=== PATIENT | female | born 1955 | race Caucasian/White ===

== ENCOUNTER → 2018-07-20 | Outpatient (CLI) | payer OTHER, SELFPAY ==
[2018-03-22 11:16] VITALS: BMI 32.3
--- NOTE | 2018-07-20 16:26 | BI_ITS ---
MAMMOGRAPHY - BILATERAL SCREENING REASON FOR EXAM: Female, 63 years old. Routine annual screening examination. PERTINENT HISTORY: Mother with breast cancer. History of prior right lumpectomy with radiation treatment. TECHNIQUE: Digital bilateral breast jessika (3D mammographic acquisition) in the CC and MLO projections. 2-D mediolateral oblique (MLO) and craniocaudad (CC) views of both breasts were obtained. CAD: Full Field Digital Mammography with Computer Added Detection was performed. COMPARISON: Comparison is made with prior outside examination dated April 17, 2017. FINDINGS: Breast Composition: The breasts are heterogeneously dense, which may obscure small masses. There are no dominant masses or suspicious calcifications. Stable focal area of architectural distortion in the upper lateral aspect of the right breast incomplete with prior lumpectomy. A surgical clip is seen in the right axillary region. Stable small bilateral axillary lymph nodes. No other significant abnormalities are identified. There has been no significant change since the prior study. BI/SCREEN MAMM (CAD) W/JESSIKA BILAT IMPRESSION: Stable bilateral screening mammogram. Yearly follow-up mammogram recommended. (A) ASSESSMENT CATEGORY: BIRADS Category 2: Benign. A letter regarding these results will be sent to the patient by the facility within 30 days. Approximately 10% of breast cancers are not detected by mammography. A normal mammogram should not delay biopsy of a clinically suspicious abnormality. [id number] Electronically Signed: John Short, at 11:26 EDT , Service support ,
== END | disposition home or self-care (01) ==
PROVIDERS: Family Provider Internal Medicine; PCP Internal Medicine; Visit Provider Obstetrics & Gynecology
DX: Z12.31 Encounter for screening mammogram for malignant neoplasm of breast (principal)
CPT/HCPCS: 77063; 77067

== ENCOUNTER → 2018-08-07 | Outpatient (CLI) | payer OTHER, SELFPAY ==
[2018-07-28 18:08] VITALS: BMI 19.3
[2018-08-07 09:41] LABS: Absolute Lymphocyte Count 2.81 X10^3/ul (0.83-4.51); Absolute Neutrophil Count 2.8 X10^3/uL (2.0-7.7); Basophil# 0.02 X10^3/uL; Basophil% 0.3 % (0-1); Eosinophil# 0.22 X10^3/uL; Eosinophils% 3.5 % (0-5); Hematocrit 41.6 % (37-47); Hemoglobin 13.6 g/dl (12.0-15.0); Lymphocyte # 2.81 X10^3/ul (4.0); Lymphocyte % 45.1 % (19-41); Mean Corp Hgb Conc 32.7 g/gl (32-36); Mean Corpuscular Hgb 29.4 pg (27.0-32.0); Mean Corpuscular Volume 89.8 fL (81-99); Mean Platelet Vol. 9.8 fl (6.2-12.0); Monocyte# 0.37 X10^3/uL; Monocyte% 5.9 % (0-10); Neutrophil # 2.79 X10^3/uL (2.7-7.7); Neutrophil % 44.9 % (47-70); Platelet Count 251 K/mm3 (150-450); RBC Distribution Width CV 13.8 % (11.6-14.6); RBC Distribution Width SD 45.2 fl (35.1-43.9); Red Blood Count 4.63 M/mm3 (4.2-5.4); White Blood Count 6.2 K/mm3 (4.4-11.0)
[2018-08-07 09:42] LABS: POSITIVE COUNT NO; POSITIVE DIFFERENTIAL NO; POSITIVE MORPHOLOGY NO
[2018-08-07 09:49] LABS: Anion Gap 6 (5-15); BUN 15 mg/dL (7-18); BUN/Creat Ratio 20.4 RATIO (10-20); Calcium,Total 9.1 mg/dL (8.5-10.1); Chloride 111 mmol/L (98-107); Cholesterol 188 mg/dL (200); Creatinine, Serum 0.73 mg/dL (0.55-1.02); EST Glomerular Filtration Rate 86 mL/min (>60); Est Glom Filt Rate - Afr Amer 103 mL/min (>60); Glucose 83 mg/dL (74-106); High Density Lipoprotein 60 mg/dL; Potassium 3.9 mmol/L (3.5-5.1); Sodium Level 143 mmol/L (136-145); Triglycerides 188 mg/dL; Very Low Density Lipoprotein 38 mg/dL (5-40)
== END | disposition home or self-care (01) ==
LOC: LAB 09:04
PROVIDERS: Family Provider Internal Medicine; PCP Internal Medicine; Referring Provider Internal Medicine; Visit Provider Internal Medicine
DX: Z00.00 Encounter for general adult medical examination without abnormal findings (principal)
CPT/HCPCS: 36415; 80048; 80061; 85025

== ENCOUNTER → 2019-06-07 16:15 | Outpatient (CLI) | payer OTHER, SELFPAY ==
[2018-07-28 18:08] VITALS: BMI 19.3
[2019-06-07 15:44] VITALS: BMI 19.3
--- NOTE | 2019-06-07 16:16 | BI_ITS ---
MAMMOGRAPHY - BILATERAL SCREENING REASON FOR EXAM: Female, 64 years old. Routine annual screening examination. PERTINENT HISTORY: Sister had right breast lumpectomy and radiation therapy for cancer TECHNIQUE: Digital bilateral breast jessika (3D mammographic acquisition) in the CC and MLO projections. 2-D mediolateral oblique (MLO) and craniocaudad (CC) views of both breasts were obtained. CAD: Full Field Digital Mammography with Computer Added Detection was performed. COMPARISON: None. FINDINGS: Breast Composition: Dense intraluminal structure is identified There are no dominant masses or suspicious calcifications. No other significant abnormalities are identified. BI/SCREEN MAMM (CAD) W/JESSIKA BILAT IMPRESSION: Stable bilateral screening mammogram. Yearly follow-up mammogram recommended. (A) ASSESSMENT CATEGORY: BIRADS Category 1: Negative. A letter regarding these results will be sent to the patient by the facility within 30 days. Approximately 10% of breast cancers are not detected by mammography. A normal mammogram should not delay biopsy of a clinically suspicious abnormality. [id number] Electronically Signed: Sukhjinder Laboy, at 10:28 EST Tel , Service support ,
[2019-06-10 05:45] LABS: HPV APTIMA, High Risk Negative (Negative)
== END ==
PROVIDERS: PCP Internal Medicine; Referring Provider Obstetrics & Gynecology; Visit Provider Obstetrics & Gynecology
DX: N87.1 Moderate cervical dysplasia (principal); Z12.31 Encounter for screening mammogram for malignant neoplasm of breast
CPT/HCPCS: 77063; 77067; 87624; 88175; G0145

== ENCOUNTER → 2020-03-16 10:22 | Outpatient (CLI) | payer OTHER, SELFPAY ==
[2020-03-16 10:04] VITALS: BMI 30.5
[2020-03-16 12:59] LABS: Absolute Lymphocyte Count 2.67 X10^3/uL (0.83-4.51); Absolute Neutrophil Count 2.5 X10^3/uL (2.0-7.7); Basophil# 0.02 X10^3/uL; Basophil% 0.3 % (0-1); Eosinophil# 0.16 X10^3/uL; Eosinophils% 2.8 % (0-5); Hematocrit 45.6 % (37-47); Hemoglobin 14.3 g/dL (12.0-15.0); Lymphocyte # 2.67 X10^3/ul (4.0); Mean Corp Hgb Conc 31.4 g/dL (32-36); Mean Corpuscular Hgb 29.1 pg (27.0-32.0); Mean Corpuscular Volume 92.7 fL (81-99); Mean Platelet Vol. 9.9 fl (6.2-12.0); Monocyte% 6.9 % (0-10); NRBC Flagged by Analyzer 0 % (0-5); Neutrophil # 2.54 X10^3/uL (2.7-7.7); Neutrophil % 43.8 % (47-70); Platelet Count 287 K/mm3 (150-450); RBC Distribution Width CV 13.6 % (11.6-14.6); RBC Distribution Width SD 46.7 fl (35.1-43.9); Red Blood Count 4.92 M/mm3 (4.2-5.4); White Blood Count 5.8 K/mm3 (4.4-11.0)
[2020-03-16 13:18] LABS: ALB/GLOB Ratio 1.3 RATIO (0.9-2.4); AST(SGOT) 19 U/L (15-37); Alanine Aminotransfer ALT/SGPT 29 U/L (13-56); Albumin, Serum 4.1 g/dL (3.2-5.0); Alkaline Phosphatase 109 U/L (45-117); Anion Gap 5 (5-15); BUN 14 mg/dL (7-18); BUN/Creat Ratio 16.4 RATIO (10-20); Calcium,Total 9.6 mg/dL (8.5-10.1); Chloride 111 mmol/L (98-107); Cholesterol 202 mg/dL (200); Creatinine, Serum 0.85 mg/dL (0.55-1.02); EST Glomerular Filtration Rate 72 mL/min (>60); Est Glom Filt Rate - Afr Amer 87 mL/min (>60); Globulin 3.1 g/dL (2.2-4.2); Glucose 83 mg/dL (74-106); High Density Lipoprotein 69 mg/dL; Potassium 4.4 mmol/L (3.5-5.1); Protein, Total 7.2 g/dL (6.4-8.2); Sodium Level 144 mmol/L (136-145); T4 Free Direct 0.96 ng/dL (0.76-1.46); Thyroid Stim Hormone (TSH) 1.95 uIU/mL (0.358-3.74); Triglycerides 117 mg/dL; Very Low Density Lipoprotein 23 mg/dL (5-40)
== END ==
PROVIDERS: PCP Internal Medicine; Referring Provider Internal Medicine; Visit Provider Internal Medicine
DX: Z00.00 Encounter for general adult medical examination without abnormal findings (principal); R00.1 Bradycardia, unspecified
CPT/HCPCS: 36415; 80053; 80061; 84439; 84443; 85025

== ENCOUNTER → 2020-03-16 12:52 | Outpatient (CLI) | payer OTHER, SELFPAY ==
[2020-03-16 10:04] VITALS: BMI 30.5
--- NOTE | 2020-03-16 12:55 | EKG12_ITS ---
Test Reason : Blood Pressure : / mmHG Vent. Rate : 049 BPM Atrial Rate : 049 BPM P-R Int : 166 ms QRS Dur : 080 ms QT Int : 426 ms P-R-T Axes : 050 -07 052 degrees QTc Int : 384 ms Sinus bradycardia Otherwise normal ECG Confirmed by ZAIRE STONE, SALINAS ([id number]), material expeditor JONY VIRGEN ([id number]) on 03/19/2020 1:43:02 PM Referred By: Moi Clemens Confirmed By:SALINAS TAI MD
== END ==
PROVIDERS: PCP Internal Medicine; Referring Provider Internal Medicine; Visit Provider Internal Medicine
DX: R00.1 Bradycardia, unspecified (principal)
CPT/HCPCS: 93005

== ENCOUNTER → 2020-06-18 15:46 | Outpatient (CLI) | payer OTHER, SELFPAY ==
[2019-06-07 15:44] VITALS: BMI 19.3
[2020-06-18 15:00] VITALS: BMI 27.6
--- NOTE | 2020-06-18 15:50 | BI_ITS ---
MAMMOGRAPHY - BILATERAL SCREENING REASON FOR EXAM: Female, 65 years old. Routine annual screening examination. PERTINENT HISTORY: P/H OF BREAST CA AGE 51 TUBULAR SISTER AGE 53 HAD BREAST CA PT TOOK TOMOXIFEN X 10 YRS RT LUMPECTOMY 2008 WITH RAD TX AND TOMOXIFEN X 10 YRS 2020- DR PIMENTEL MENTIONED TO PT RT NIPPLE SEEMS A LITTLE THICKER TECHNIQUE: Digital bilateral breast jessika (3D mammographic acquisition) in the CC and MLO projections. 2-D mediolateral oblique (MLO) and craniocaudad (CC) views of both breasts were obtained. CAD: Full Field Digital Mammography with Computer Added Detection was performed. COMPARISON: 06/07/2019 and 07/20/2018 FINDINGS: Breast Composition: The breasts are extremely dense, which lowers the sensitivity of mammography. There are no dominant masses or suspicious calcifications. No other significant abnormalities are identified. BI/SCRN MAMM (CAD)W/JESSIKA BILAT IMPRESSION: Stable bilateral screening mammogram. Yearly follow-up mammogram recommended. (A) ASSESSMENT CATEGORY: BIRADS Category 2: Benign. A letter regarding these results will be sent to the patient by the facility within 30 days. Approximately 10% of breast cancers are not detected by mammography. A normal mammogram should not delay biopsy of a clinically suspicious abnormality. [id number] Electronically Signed: Lorne Licea MD at 15:56 EST Tel , Service support ,
== END ==
PROVIDERS: PCP Internal Medicine; Referring Provider Obstetrics & Gynecology; Visit Provider Obstetrics & Gynecology
DX: Z12.31 Encounter for screening mammogram for malignant neoplasm of breast (principal)
CPT/HCPCS: 77063; 77067

== ENCOUNTER 2021-06-21 14:36 | Outpatient (CLI) | payer OTHER, SELFPAY ==
--- NOTE | 2021-06-21 14:36 | BI_ITS ---
MAMMOGRAPHY - BILATERAL SCREENING 3-D TOMOSYNTHESIS REASON FOR EXAM: Female, 66 years old. breast cancer screening PERTINENT HISTORY: No significant family history. TECHNIQUE: 2-D mammograms and 3-D Tomosynthesis of the breast (s) were performed. CAD was performed. COMPARISON: 06/18/2020 FINDINGS: The breast composition is heterogeneously dense that can obscure small breast masses. Scattered benign calcifications are seen. No dense spiculated masses or suspicious microcalcifications are identified. No architectural distortion is identified. There is no skin thickening or retraction. There has been no significant change since the prior study. BI/SCRN MAMM (CAD)W/JESSIKA BILAT IMPRESSION: No mammographic signs of malignancy. Routine yearly mammograms recommended. ASSESSMENT CATEGORY: BIRADS Category 1: Negative. A letter regarding these results will be sent to the patient by the facility within 30 days. FOLLOW UP RECOMMENDATION: Yearly follow up mammogram recommended. (A) Approximately 10% of breast cancers are not detected by mammography. A normal mammogram should not delay biopsy of a clinically suspicious abnormality. Electronically Signed: Samuel Evans MD at 11:47 EDT ,
== END 2021-06-21 23:59 | disposition home or self-care (01) ==
LOC: OPBI 14:36
PROVIDERS: PCP Internal Medicine; Referring Provider Obstetrics & Gynecology; Visit Provider Obstetrics & Gynecology
DX: Z12.31 Encounter for screening mammogram for malignant neoplasm of breast (principal)
CPT/HCPCS: 77063; 77067

== ENCOUNTER → 2022-06-19 | Outpatient (CLI) | payer MEDICARE, SELFPAY ==
--- NOTE | 2022-06-19 16:26 | BI_ITS ---
MAMMOGRAPHY - BILATERAL SCREENING REASON FOR EXAM: Female, 67 years old. Routine annual screening examination. PERTINENT HISTORY: Personal history of breast cancer. Prior right lumpectomy and radiation treatment. Sister with breast cancer. TECHNIQUE: Digital bilateral breast jessika (3D mammographic acquisition) in the CC and MLO projections. 2-D mediolateral oblique (MLO) and craniocaudad (CC) views of both breasts were obtained. CAD: Full Field Digital Mammography with Computer Added Detection was performed. COMPARISON: Comparison is made with prior study June 21, 2021 and June 18, 2020. FINDINGS: Breast Composition: The breasts are extremely dense, which lowers the sensitivity of mammography. There are no dominant masses or suspicious calcifications. A surgical clip is seen in the right axilla. Stable benign-appearing bilateral axillary lymph nodes. No other significant abnormalities are identified. There has been no significant change since the prior study. BI/SCRN MAMM (CAD)W/JESSIKA BILAT IMPRESSION: Stable bilateral screening mammogram. Yearly follow-up mammogram recommended. (A) ASSESSMENT CATEGORY: BIRADS Category 2: Benign. A letter regarding these results will be sent to the patient by the facility within 30 days. Approximately 10% of breast cancers are not detected by mammography. A normal mammogram should not delay biopsy of a clinically suspicious abnormality. [id number] Electronically Signed: John Short MD at 8:21 EST ,
== END | disposition home or self-care (01) ==
PROVIDERS: PCP Internal Medicine; Visit Provider Obstetrics & Gynecology
DX: Z12.31 Encounter for screening mammogram for malignant neoplasm of breast (principal); Z85.3 Personal history of malignant neoplasm of breast
CPT/HCPCS: 77063; 77067

== ENCOUNTER → 2022-10-31 | Outpatient (CLI) | payer MEDICARE, SELFPAY ==
[2022-10-31 11:27] LABS: Bacteria 0 SEEN /hpf (None Seen); Mucous, Urine 0 SEEN /hpf (<or=2+); Red Blood Cells-Urine 0 SEEN /hpf (0-5); Squamous Epithelial Cells - UA 0 SEEN /hpf (5-10); White Blood Cells 0 SEEN /hpf (0-5)
[2022-10-31 11:39] LABS: Color, Urine Yellow (Yellow); Glucose, Dipstick Normal (Normal); Ketone-Dipstick Negative (Negative); Leukocyte Esterase-Dipstick 100 /ul (Negative); Nitrite-Dipstick Negative (Negative); Occult Blood-Urine 150 /ul (Negative); Protein-Dipstick Negative (Negative); Urine Bilirubin Dipstick Negative (Negative); Urine Clarity Sl. Cloudy (Clear); Urine Urobilinogen Normal (Normal)
== END | disposition home or self-care (01) ==
PROVIDERS: PCP Internal Medicine; Referring Provider Physician Assistant; Visit Provider Physician Assistant
DX: N39.0 Urinary tract infection, site not specified (principal)
CPT/HCPCS: 81001; 87077; 87086; 87088; 87186

== ENCOUNTER → 2023-02-16 | Outpatient (CLI) | payer MEDICARE, SELFPAY ==
[2023-02-16 08:52] LABS: Bacteria 0 SEEN /hpf (None Seen); Mucous, Urine 0 SEEN /hpf (<or=2+); Red Blood Cells-Urine 0 SEEN /hpf (0-5); Squamous Epithelial Cells - UA 0 SEEN /hpf (5-10)
[2023-02-16 10:17] LABS: Color, Urine Yellow (Yellow); Glucose, Dipstick Normal (Normal); Ketone-Dipstick 5 mg/dl (Negative); Leukocyte Esterase-Dipstick 500 /ul (Negative); Nitrite-Dipstick Negative (Negative); Occult Blood-Urine 250 /ul (Negative); Protein-Dipstick 100 mg/dl (Negative); Urine Bilirubin Dipstick Negative (Negative); Urine Clarity Cloudy (Clear); Urine Urobilinogen Normal (Normal)
[2023-02-16 10:43] LABS: White Blood Cells >100 SEEN /hpf (0-5)
== END | disposition home or self-care (01) ==
PROVIDERS: PCP Internal Medicine; Visit Provider Physician Assistant
DX: R30.0 Dysuria (principal); N39.0 Urinary tract infection, site not specified
CPT/HCPCS: 81001; 87077; 87086; 87088; 87186

== ENCOUNTER → 2023-04-04 | Outpatient (CLI) | payer MEDICARE, SELFPAY ==
[2023-04-05 14:18] LABS: Mucous, Urine 0 SEEN /hpf (<or=2+); Red Blood Cells-Urine 0 SEEN /hpf (0-5); Squamous Epithelial Cells - UA 0 SEEN /hpf (5-10)
[2023-04-05 14:34] LABS: Color, Urine Yellow (Yellow); Glucose, Dipstick Normal (Normal); Ketone-Dipstick Negative (Negative); Leukocyte Esterase-Dipstick 500 /ul (Negative); Nitrite-Dipstick Negative (Negative); Occult Blood-Urine 250 /ul (Negative); Protein-Dipstick 100 mg/dl (Negative); Specific Gravity, Urine 1.025 (1.002-1.030); Urine Bilirubin Dipstick Negative (Negative); Urine Clarity Cloudy (Clear); Urine Urobilinogen Normal (Normal)
[2023-04-05 14:54] LABS: Bacteria 3+ /hpf (None Seen); White Blood Cells >100 SEEN /hpf (0-5)
== END | disposition home or self-care (01) ==
PROVIDERS: PCP Internal Medicine; Visit Provider Nurse Practitioner Family
DX: R30.0 Dysuria (principal)
CPT/HCPCS: 81001; 87086; 87088; 87186

== ENCOUNTER → 2023-05-29 | Outpatient (CLI) | payer MEDICARE, SELFPAY ==
--- OUTSIDE RECORDS SUMMARY | 2023-05-29 09:38 | XMS RPT_ITS | CCD ---
Author Name Unknown Address [id number] [place] [address] Organization [facility] Care Team Providers Care Credit Charge Authorizer Name Role Phone SB Abraham RN, Myranda Ibarra Unavailable Lucas Perez SURGICAL SERVICES MANAGER, Kajal Espitia Unavailable Reece STONE, Valerie Winchester Unavailable [phone] SB Abraham RN, Myranda Marquez Unavailkm Abraham RN RN, Myranda Marquez Unavailkm [place] Allergies Allergy Classification Reported Allergen(s) Allergy Type Date of Onset Reaction(s) Facility (10 sources) sulfamethoxazole / trimethoprim drug allergy 7 [facility] Medications Completed/Discontinued Medications Medication Drug Class(es) Dates Sig (Normalized) Sig (Original) BIOTEN (4 sources) Start: 02-03-2017 BIOTEN 10,000 mcg BIOTEN Valerie Newell MD citalopram 10 mg oral tablet (4 sources) Serotonin Reuptake Inhibitor Start: 02-03-2017 CITALOPRAM HYDROBROMIDE 10 MG TABS 1 daily CITALOPRAM HYDROBROMIDE [id number] Valerie Newell MD fluconazole 150 mg oral tablet (14 sources) Azole Antifungal Start: 12-25-2016 End: 02-03-2017 DIFLUCAN 150 MG TABS take 1 po now and repeat in 72 hours FLUCONAZOLE [id number] Valerie Newell MD metroNIDAZOLE 500 mg oral tablet (10 sources) Nitroimidazole Antimicrobial Start: 01-01-2017 End: 02-03-2017 take 1 tablet by mouth twice daily FLAGYL 500 MG TABS One tablet by mouth twice daily METRONIDAZOLE [id number] Valerie Newell MD MULTIPLE VITAMIN (4 sources) Start: 02-03-2017 DAILY MULTIPLE VITAMINS TABS 1 daily MULTIPLE VITAMIN [id number] Valerie Newell MD tamoxifen 20 mg oral tablet (4 sources) Estrogen Agonist/Antagonist Start: 02-03-2017 TAMOXIFEN CITRATE 20 MG TABS 1 daily TAMOXIFEN CITRATE [id number] Valerie Newell MD Problems Active Problems Problem Classification Problem Date Documented Date Episodic/Chronic Unclassified (3 sources) Gynecologic examination ; Translations: [Encounter for gynecological examination (general) (routine) without abnormal findings] Onset: 02-03-2017 02-03-2017 Past or Other Problems Problem Classification Problem Date Documented Date Episodic/Chronic Cancer of cervix (4 sources) Cervical intraepithelial neoplasia grade III with severe dysplasia; Translations: [Carcinoma in situ of cervix, unspecified] Onset: 02-03-2017 02-03-2017 Episodic Inflammatory diseases of female pelvic organs (14 sources) Vaginitis and vulvovaginitis; Translations: [Acute vaginitis] Onset: 12-25-2016 Resolved: 02-03-2017 12-25-2016 Episodic Results Test Name Value Interpretation Reference Range Facil ity Vital Signs Date Time Vital Sign Value Performing Clinician Faci lity 02-03-2017 13:02-0400 BMI (Body Mass Index) 27.98 kg/m2 Valerie Newell MD [facility] 02-03-2017 13:02-0400 BP Diastolic 84 mm[Hg] Valerie Newell MD [facility] 02-03-2017 13:02-0400 BP Systolic 150 mm[Hg] Valerie Newell MD [facility] 02-03-2017 13:02-0400 Height 162.56 cm Valerie Newell MD [facility] 02-03-2017 13:02-0400 Pulse (Heart Rate) 55 /min Valerie Newell MD [facility] 02-03-2017 13:02-0400 Weight 73.94 kg Valerie Newell MD [facility] 12-25-2016 10:00-0400 BMI (Body Mass Index) 26.16 kg/m2 Valerie Newell MD [facility] 12-25-2016 10:00-0400 Body Temperature 97.5 [degF] Valerie Newell MD [facility] 12-25-2016 10:00-0400 BP Diastolic 64 mm[Hg] Valerie Newell MD [facility] 12-25-2016 10:00-0400 BP Systolic 132 mm[Hg] Valerie Newell MD [facility] 12-25-2016 10:00-0400 Height 162.56 cm Valerie Newell MD [facility] 12-25-2016 10:00-0400 Pulse (Heart Rate) 60 /min Valerie Newell MD [facility] 12-25-2016 10:00-0400 Respiratory Rate 16 /min Valerie Newell MD [facility] 12-25-2016 10:00-0400 Weight 69.13 kg Valerie Newell MD [facility] Procedures Date Procedure Procedure Detail Performing Clinician Start: 02-03-2017 Gynecologic examination Bookkeeper annual e ashu Newell MD Start: 02-03-2017 End: 02-03-2017 Documentation of current medications Valerie Newell MD Plan of Treatment Date Care Activity Detail Author Start: 02-03-2017 End: 02-03-2017 Appointment Appointment [facility] Start: 12-25-2016 End: 12-25-2016 Bacteria genital culture *CUV - Culture, VAG/CX Comprehensive [facility] Work Phone: Start: 12-25-2016 End: 12-25-2016 Appointment Appointment [facility] Start: 12-25-2016 End: 12-25-2016 Bacteria genital culture *CUV - Culture, VAG/CX Comprehensive [facility] Progress note 12-10-2020 Note Date & Type Note Facility 12-10-2020 Note HNO ID: [id number] Author: Jacy Lilly Service: ? Author Type: ? Type: Progress Notes Filed: 12/10/2020 10:47 AM Note Text: Called and talked to patient and she declined having a colonoscopy and she no longer sees Dr. Fabian for her PCP so I deleted her PCP. Jacy Lilly [facility] Progress note 12-03-2020 Note Date & Type Note Facility 08-23-2021 Note HNO ID: [id number] Author: Jacy Boss [facility] Service: ? Author Type: ? Type: Progress Notes Filed: 12/03/2020 2:10 PM Note Text: 1st failed attempt to contact patient, left voicemail for a return call Jacy [facility] Progress note 11-21-2020 Note Date & Type Note Facility 11-21-2020 Note HNO ID: [id number] Author: Ilana Galan RN Service: ? Author Type: Registered Nurse Type: Progress Notes Filed: 12/03/2020 2:10 PM Note Text: Pt overdue for screening colonoscopy. Okay for open access. Please call pt to schedule. Ilana Galan RN [facility] Clinical Note 11-21-2020 Note Date & Type Note Facility 11-21-2020 Note Patient Outreach (IN [facility]WS) Destiny SURESH ([id number]) 1955 F Date Time Provider Department 11/21/20 RENATO FABIAN During your visit today, we recorded the following information about you: Ilana Galan RN 12/03/2020 2:10 PM Signed Pt overdue for screening colonoscopy. Okay for open access. Please call pt to schedule. [facility] 2:10 PM Signed 1st failed attempt to contact patient, left voicemail for a return call [facility] 12/10/2020 10:47 AM Signed Called and talked to patient and she declined having a colonoscopy and she no longer sees Dr. Fabian for her PCP so I deleted her PCP. [facility] [place] Allergies As of Date: 11/21/2020 Noted Allergy Reaction SULFA (SULFONAMIDE ANTIBIOTICS) 03/27/2009 VALSARTAN 05/14/2017 3 - Cough Date Reviewed: 02/25/2018 Reviewed by: Mary Pierre LPN - Fully Assessed Reason for Visit: Outpatient Colonoscopy [482] Prescriptions as of 12/10/2020 - amLODIPine (NORVASC) 5 mg tablet TAKE 1 TABLET DAILY - multivitamin tablet Take 1 tablet by mouth once daily. - tamoxifen (NOLVADEX) 20 mg tablet Take 1 tablet by mouth once daily. - tamoxifen (NOLVADEX) 20 mg tablet Take 1 tablet by mouth once daily. Problem List As Of Date 11/21/2020 Noted Resolved Malignant neoplasm of other specified sites of *07/14/2008 Anxiety and depression [F41.9, F32.9] 01/06/2017 02/25/2018 Cholelithiases [K80.20] 10/05/2017 Essential hypertension [I10] 02/25/2018 Encounter Status:Closed by JACY GOMEZ on 12/03/20 [facility] Clinical Note 11-02-2020 Note Date & Type Note Facility 11-02-2020 Note Patient Outreach (IN [facility]) Destiny SURESH ([id number]) 1955 F Date Time Provider Department 11/02/20 RENATO FABIAN During your visit today, we recorded the following information about you: Allergies As of Date: 11/02/2020 Noted Allergy Reaction SULFA (SULFONAMIDE ANTIBIOTICS) 03/27/2009 VALSARTAN 05/14/2017 3 - Cough Date Reviewed: 02/25/2018 Reviewed by: Mary Pierre LPN - Fully Assessed Visit Diagnosis:Encounter for screening mammogram for breast cancer [Z12.31] Order(s):[facility] SCREENING [[id number]] Order #: [id number] FUTURE Prescriptions as of 11/05/2020 - amLODIPine (NORVASC) 5 mg tablet TAKE 1 TABLET DAILY - multivitamin tablet Take 1 tablet by mouth once daily. - tamoxifen (NOLVADEX) 20 mg tablet Take 1 tablet by mouth once daily. - tamoxifen (NOLVADEX) 20 mg tablet Take 1 tablet by mouth once daily. Problem List As Of Date 11/02/2020 Noted Resolved Malignant neoplasm of other specified sites of *07/14/2008 Anxiety and depression [F41.9, F32.9] 01/06/2017 02/25/2018 Cholelithiases [K80.20] 10/05/2017 Essential hypertension [I10] 02/25/2018 Encounter Status:Closed by MARYLU, PRODUSER on 11/05/20 [facility] Summary Purpose Family History No Family History Records FoundNo Family History Records Found Advance Directives No Advanced Directives Records FoundNo Advanced Directives Records Found Additional Source Comments INFORMATION SOURCE (unrecogn ized section and content) DATE CREATED AUTHOR AUTHOR'S ORGANIZ ATION 05/31/2021 [facility] FOR RECORDS PERTAINING TO PATIENTS WHO ARE OR HAVE BEEN ENROLLED IN A CHEMICAL DEPENDENCY/SUBSTANCEABUSE PROGRAM, SOME INFORMATION MAY BE OMITTED. This clinical summary was aggregated from multiple sources. Caution should be exercised in using it in the provision of clinical care. This summary normalizes information from multiple sources, and as a consequence, information in this document may materially change the coding, format and clinical context of patient data. In addition, data may be omitted in some cases. CLINICAL DECISIONS SHOULD BE BASED ON THE PRIMARY CLINICAL RECORDS. [employer] provides no warranty or guarantee of the accuracy or completeness of information in this document.
[2023-05-29 10:05] LABS: Absolute Lymphocyte Count 3.49 X10^3/uL (0.83-4.51); Absolute Neutrophil Count 2.4 X10^3/uL (2.0-7.7); Basophil# 0.05 X10^3/uL; Basophil% 0.8 % (0-1); Eosinophil# 0.15 X10^3/uL; Eosinophils% 2.3 % (0-5); Hematocrit 45.5 % (37-47); Hemoglobin 14.3 g/dL (12.0-15.0); Lymphocyte # 3.49 X10^3/ul (0.83-4.51); Lymphocyte % 53.1 % (19-41); Mean Corp Hgb Conc 31.4 g/dL (32-36); Mean Corpuscular Hgb 28.7 pg (27.0-32.0); Mean Corpuscular Volume 91.4 fL (81-99); Mean Platelet Vol. 10.6 fl (6.2-12.0); Monocyte# 0.44 X10^3/uL; Monocyte% 6.7 % (0-10); NRBC Flagged by Analyzer 0 % (0-5); Neutrophil # 2.43 X10^3/uL (2.7-7.7); Neutrophil % 36.9 % (47-70); Platelet Count 249 K/mm3 (150-450); RBC Distribution Width CV 13.6 % (11.6-14.6); RBC Distribution Width SD 45.9 fl (35.1-43.9); Red Blood Count 4.98 M/mm3 (4.2-5.4); White Blood Count 6.6 K/mm3 (4.4-11.0)
[2023-05-29 10:22] LABS: ALB/GLOB Ratio 1.2 RATIO (0.9-2.4); AST(SGOT) 44 U/L (15-37); Alanine Aminotransfer ALT/SGPT 35 U/L (13-56); Albumin, Serum 3.9 g/dL (3.2-5.0); Alkaline Phosphatase 80 U/L (45-117); Anion Gap 4 (5-15); BUN 14 mg/dL (7-18); BUN/Creat Ratio 18.1 RATIO (10-20); Calcium,Total 9.5 mg/dL (8.5-10.1); Chloride 114 mmol/L (98-107); Cholesterol 167 mg/dL (200); Creatinine, Serum 0.77 mg/dL (0.55-1.02); EST Glomerular Filtration Rate 79 mL/min (>60); Est Glom Filt Rate - Afr Amer 96 mL/min (>60); Globulin 3.3 g/dL (2.2-4.2); Glucose 74 mg/dL (74-106); High Density Lipoprotein 54 mg/dL; Potassium 4.5 mmol/L (3.5-5.1); Protein, Total 7.2 g/dL (6.4-8.2); Sodium Level 143 mmol/L (136-145); Triglycerides 108 mg/dL; Very Low Density Lipoprotein 22 mg/dL (5-40)
== END | disposition home or self-care (01) ==
LOC: LAB 09:07
PROVIDERS: PCP Internal Medicine; Referring Provider Nurse Practitioner; Visit Provider Nurse Practitioner
DX: N87.1 Moderate cervical dysplasia (principal); I10 Essential (primary) hypertension
CPT/HCPCS: 36415; 80053; 80061; 85025

== ENCOUNTER → 2023-06-02 | Outpatient (CLI) | payer MEDICARE, SELFPAY ==
--- NOTE | 2023-06-02 15:44 | BD_ITS ---
STUDY: DUAL ENERGY X-RAY ABSORPTIOMETRY / DXA REASON FOR EXAM: Female, 68 years old. Screening for osteoporosis TECHNIQUE: Bone Mineral Density (BMD) measurements of lumbar spine and bilateral hips were obtained. COMPARISON: None. FINDINGS: Lumbar Spine (L1-L4): g/cm2 (1.052) / T-score (0.0) / Z-score (1.9) Findings are suggestive of normal bone density with a low fracture risk. Left Femur Total: g/cm2 (0.954) / T-score (0.1) / Z-score (1.4) Left Femoral Neck: g/cm2 (0.895) / T-score (0.4) / Z-score (2.0) Right Femur Total: g/cm2 (0.989) / T-score (0.4) / Z-score (1.7) Right Femoral Neck: g/cm2 (0.896) / T-score (0.4) / Z-score (2.0) BD/Dexa Bone Density Study IMPRESSION: The patient is considered normal as outlined below according to World Scott Organization (WHO) criteria with a low fracture risk. Reference Information: The T-score is the number of standard deviations above or below the standard which is normal for young adults at their peak bone mineral density. The World Health Organization (WHO) interprets the T-scores as follows: Above -1 Normal bone density Between -1 and -2.5 Osteopenia Equal to / or below -2.5 Osteoporosis As a practical clinical guideline, osteopenia may be graded as follows: Mild -1 through -1.5 Moderate -1.6 through -2.0 Severe -2.1 through -2.4 The Z-score is the number of standard deviations above or below age-matched controls. A Z-score of less than -1.5 would be considered abnormal. References: 1. NIH Osteoporosis and Related Bone Diseases www osteo.org 2. International Society for Clinical Densitometry www iscd.org 3. National Osteoporosis Foundation www nof.org Electronically Signed: John Short MD at 8:44 EST ,
== END | disposition home or self-care (01) ==
LOC: OPBD 15:33
PROVIDERS: PCP Internal Medicine; Referring Provider Nurse Practitioner; Visit Provider Nurse Practitioner
DX: Z78.0 Asymptomatic menopausal state (principal)
CPT/HCPCS: 77080

== ENCOUNTER → 2023-06-12 | Outpatient (CLI) | payer MEDICARE, SELFPAY ==
[2023-06-12 12:37] LABS: Color, Urine Yellow (Yellow); Glucose, Dipstick Normal (Normal); Ketone-Dipstick 5 mg/dl (Negative); Leukocyte Esterase-Dipstick 25 /ul (Negative); Nitrite-Dipstick Negative (Negative); Occult Blood-Urine 150 /ul (Negative); Protein-Dipstick 15 mg/dl (Negative); Specific Gravity, Urine 1.025 (1.002-1.030); Urine Bilirubin Dipstick Negative (Negative); Urine Clarity Sl. Cloudy (Clear); Urine Urobilinogen Normal (Normal)
[2023-06-12 12:55] LABS: Bacteria 1+ /hpf (None Seen); Mucous, Urine 1+ /hpf (<or=2+); Red Blood Cells-Urine 10-25 SEEN /hpf (0-5); Squamous Epithelial Cells - UA 0-5 SEEN /hpf (5-10); White Blood Cells 0-5 SEEN /hpf (0-5)
== END | disposition home or self-care (01) ==
LOC: LABSPEC 10:52
PROVIDERS: Nurse Practitioner; PCP Internal Medicine; Visit Provider Internal Medicine
DX: N39.0 Urinary tract infection, site not specified (principal)
CPT/HCPCS: 81001; 87086

== ENCOUNTER → 2023-06-19 | Outpatient (CLI) | payer MEDICARE, SELFPAY ==
[2023-06-19 10:22] LABS: Mucous, Urine 0 SEEN /hpf (<or=2+)
[2023-06-19 12:15] LABS: Color, Urine Yellow (Yellow); Glucose, Dipstick Normal (Normal); Ketone-Dipstick Negative (Negative); Leukocyte Esterase-Dipstick 100 /ul (Negative); Nitrite-Dipstick Negative (Negative); Occult Blood-Urine 50 /ul (Negative); Protein-Dipstick 15 mg/dl (Negative); Urine Bilirubin Dipstick Negative (Negative); Urine Clarity Sl. Cloudy (Clear); Urine Urobilinogen Normal (Normal)
[2023-06-19 12:31] LABS: Bacteria 1+ /hpf (None Seen); Red Blood Cells-Urine 0-5 SEEN /hpf (0-5); Squamous Epithelial Cells - UA 0-5 SEEN /hpf (5-10); White Blood Cells 10-25 SEEN /hpf (0-5)
== END | disposition home or self-care (01) ==
PROVIDERS: PCP Internal Medicine; Referring Provider Nurse Practitioner; Visit Provider Nurse Practitioner
DX: N39.0 Urinary tract infection, site not specified (principal)
CPT/HCPCS: 81001

== ENCOUNTER → 2023-06-26 | Outpatient (CLI) | payer MEDICARE, SELFPAY ==
--- NOTE | 2023-06-26 09:02 | BI_ITS ---
MAMMOGRAPHY - BILATERAL SCREENING REASON FOR EXAM: Female, 68 years old. Routine annual screening examination. PERTINENT HISTORY: Personal history of breast cancer. Prior right lumpectomy with radiation treatment. TECHNIQUE: Digital bilateral breast jessika (3D mammographic acquisition) in the CC and MLO projections. 2-D mediolateral oblique (MLO) and craniocaudad (CC) views of both breasts were obtained. CAD: Full Field Digital Mammography with Computer Added Detection was performed. COMPARISON: Comparison is made with prior study dated June 19, 2022 and June 21, 2021 FINDINGS: Breast Composition: The breasts are extremely dense, which lowers the sensitivity of mammography. There are no dominant masses or suspicious calcifications. A surgical clip is seen in the right axilla. No other significant abnormalities are identified. There has been no significant change since the prior study. BI/SCRN MAMM (CAD)W/JESSIKA BILAT IMPRESSION: Stable bilateral screening mammogram. Yearly follow-up mammogram recommended. (A) ASSESSMENT CATEGORY: BIRADS Category 2: Benign. A letter regarding these results will be sent to the patient by the facility within 30 days. Approximately 10% of breast cancers are not detected by mammography. A normal mammogram should not delay biopsy of a clinically suspicious abnormality. [id number] Electronically Signed: John Short MD at 9:41 EDT ,
--- OUTSIDE RECORDS SUMMARY | 2023-06-26 09:24 | XMS RPT_ITS | CCD ---
Author Name Unknown Address [address] [place] [address] Organization [facility] Care Team Providers Care Hospital Account Manager Name Role Phone SB Abraham RN, Myranda Ibarra Unavailable Lucas Perez PILOT FUEL ENGINEER, Kajal Espitia Unavailable Reece STONE, Valerie Lopez Unavailable [phone] SB Abraham RN, Myranda Marquez Unavailkm Abraham RN RN, Myranda Marquez Unavailkm e Allergies Allergy Classification Reported Allergen(s) Allergy Type Date of Onset Reaction(s) Facility (10 sources) sulfamethoxazole / trimethoprim drug allergy 7 [place] [facility] [place] Medications Completed/Discontinued Medications Medication Drug Class(es) Dates Sig (Normalized) Sig (Original) BIOTEN (4 sources) Start: 02-03-2017 BIOTEN 10,000 mcg BIOTEN Valerie Newell MD citalopram 10 mg oral tablet (4 sources) Serotonin Reuptake Inhibitor Start: 02-03-2017 CITALOPRAM HYDROBROMIDE 10 MG TABS 1 daily CITALOPRAM HYDROBROMIDE [id number] Valerie Newell MD fluconazole 150 mg oral tablet (14 sources) Azole Antifungal Start: 12-25-2016 End: 02-03-2017 DIFLUCAN 150 MG TABS take 1 po now and repeat in 72 hours FLUCONAZOLE [id number] Valerie Newell MD metroNIDAZOLE 500 mg oral tablet (10 sources) Nitroimidazole Antimicrobial Start: 01-01-2017 End: 02-03-2017 take 1 tablet by mouth twice daily FLAGYL 500 MG TABS One tablet by mouth twice daily METRONIDAZOLE [id number] Valerie Newell MD MULTIPLE VITAMIN (4 sources) Start: 02-03-2017 DAILY MULTIPLE VITAMINS TABS 1 daily MULTIPLE VITAMIN [id number] Valerie Newell MD tamoxifen 20 mg oral tablet (4 sources) Estrogen Agonist/Antagonist Start: 02-03-2017 TAMOXIFEN CITRATE 20 MG TABS 1 daily TAMOXIFEN CITRATE [id number] Valerie Newell MD Problems Active Problems Problem [...] Mass Index) 27.98 kg/m2 Valerie Newell MD [facility] 02-03-2017 13:02-0400 BP Diastolic 84 mm[Hg] Valerie Newell MD [facility] 02-03-2017 13:02-0400 BP Systolic 150 mm[Hg] Valerie Newell MD [facility] 02-03-2017 13:02-0400 Height 162.56 cm Valerie Newell MD [facility] 02-03-2017 13:02-0400 Pulse (Heart Rate) 55 /min Valerie Newell MD [facility] 02-03-2017 13:02-0400 Weight 73.94 kg Valerie Newell MD [facility] 12-25-2016 10:00-0400 BMI (Body Mass Index) 26.16 kg/m2 Valerie Newell MD [facility] 12-25-2016 10:00-0400 Body Temperature 97.5 [degF] Valerie Newell MD [facility] 12-25-2016 10:00-0400 BP Diastolic 64 mm[Hg] Valerie Newell MD [facility] 12-25-2016 10:00-0400 BP Systolic 132 mm[Hg] Valerie Newell MD [facility] 12-25-2016 10:00-0400 Height 162.56 cm Valerie Newell MD [facility] 12-25-2016 10:00-0400 Pulse (Heart Rate) 60 /min Valerie Newell MD [facility] 12-25-2016 10:00-0400 Respiratory Rate 16 /min Valerie Newell MD [facility] 12-25-2016 10:00-0400 Weight 69.13 kg Valerie Newell MD [facility] Procedures Date Procedure Procedure Detail Performing Clinician Start: 02-03-2017 Gynecologic examination Raw Sampler annual e ashu Newell MD Start: 02-03-2017 End: 02-03-2017 Documentation of current medications Valerie Newell MD Plan of Treatment Date Care Activity Detail Author Start: 02-03-2017 End: 02-03-2017 Appointment Appointment [facility] Start: 12-25-2016 End: 12-25-2016 Bacteria genital culture *CUV - Culture, VAG/CX [facility] Work Phone: Start: 12-25-2016 End: 12-25-2016 Appointment Appointment [facility] Start: 12-25-2016 End: 12-25-2016 Bacteria genital culture *CUV - Culture, VAG/CX [facility] Progress note 12-10-2020 Note Date & Type Note Facility 12-10-2020 Note HNO ID: [id number] Author: Jacy Lilly Service: ? Author Type: ? Type: Progress Notes Filed: 12/10/2020 10:47 AM Note Text: Called and talked to patient and she declined having a colonoscopy and she no longer sees Dr. Fabian for her PCP so I deleted her PCP. Jacy Lilly [facility] Progress note 12-03-2020 Note Date & Type Note Facility 08-23-2021 Note HNO ID: [id number] Author: Jacy Boss [facility] Service: ? Author Type: ? Type: Progress Notes Filed: 12/03/2020 2:10 PM Note Text: 1st failed attempt to contact patient, left voicemail for a return call Jacy [facility] Progress note 11-21-2020 Note Date & Type Note Facility 11-21-2020 Note HNO ID: [id number] Author: Ilana Galan RN Service: ? Author Type: Registered Nurse Type: Progress Notes Filed: 12/03/2020 2:10 PM Note Text: Pt overdue for screening colonoscopy. Okay for open access. Please call pt to schedule. Ilana Galan RN [facility] Clinical Note 11-21-2020 Note Date & Type Note Facility 11-21-2020 Note Patient Outreach (IN TMWS) Destiny SURSEH ([id number]) 1955 F Date Time Provider Department 11/21/20 RENATO FABIAN During your visit today, we recorded the following information about you: Ilana Galan RN 12/03/2020 2:10 PM Signed Pt overdue for screening colonoscopy. Okay for open access. Please call pt to schedule. [facility] 12/03/2020 2:10 PM Signed 1st failed attempt to contact patient, left voicemail for a return call [facility] 12/10/2020 10:47 AM Signed Called and talked to patient and she declined having a colonoscopy and she no longer sees Dr. Fabian for her PCP so I deleted her PCP. [facility] Allergies As of Date: 11/21/2020 Noted Allergy [...] Encounter Status:Closed by JACY GOMEZ on 12/03/20 [facility] Clinical Note 11-02-2020 Note Date & Type Note Facility 11-02-2020 Note Patient Outreach (IN [facility]) Destiny SURESH ([id number]) 1955 F Date Time Provider Department 11/02/20 RENATO FABIAN During your visit today, we recorded the following information about you: Allergies As of Date: 11/02/2020 Noted Allergy Reaction SULFA (SULFONAMIDE ANTIBIOTICS) 03/27/2009 VALSARTAN 05/14/2017 3 - Cough Date Reviewed: 02/25/2018 Reviewed by: Mary Pierre LPN - Fully Assessed Visit Diagnosis:Encounter for screening mammogram for breast cancer [Z12.31] Order(s):[facility] SCREENING [[id number]] Order #: [id number] FUTURE Prescriptions as of 11/05/2020 - amLODIPine [...] Encounter Status:Closed by MARYLU, PRODUSER on 11/05/20 [facility] Summary Purpose Family History No Family History Records FoundNo Family History Records Found Advance Directives No Advanced Directives Records FoundNo Advanced Directives Records Found Additional Source Comments INFORMATION SOURCE (unrecogn ized section and content) DATE CREATED AUTHOR AUTHOR'S ORGANIZ ATION 05/31/2021 [facility] FOR RECORDS PERTAINING TO PATIENTS WHO ARE [...] BE BASED ON THE PRIMARY CLINICAL RECORDS. [employer] provides no warranty or guarantee of the accuracy or completeness of information in this document.
== END | disposition home or self-care (01) ==
LOC: OPBI 09:01
PROVIDERS: PCP Internal Medicine; Referring Provider Obstetrics & Gynecology; Visit Provider Obstetrics & Gynecology
DX: Z12.31 Encounter for screening mammogram for malignant neoplasm of breast (principal); Z85.3 Personal history of malignant neoplasm of breast
CPT/HCPCS: 77063; 77067

== ENCOUNTER → 2023-07-10 | Outpatient (CLI) | payer MEDICARE, SELFPAY ==
[2023-07-15 16:10] LABS: HPV Reflexed? NOT INDICATED
== END | disposition home or self-care (01) ==
PROVIDERS: PCP Internal Medicine; Referring Provider Obstetrics & Gynecology; Visit Provider Obstetrics & Gynecology
DX: Z12.4 Encounter for screening for malignant neoplasm of cervix (principal)
CPT/HCPCS: 88175; G0145

== ENCOUNTER → 2023-08-06 | Outpatient (CLI) | payer MEDICARE, SELFPAY ==
--- NOTE | 2023-08-06 13:19 | MRI_ITS ---
STUDY: BILATERAL BREAST MR WITHOUT AND WITH CONTRAST REASON FOR EXAM: Female, 68 years old. History of right breast cancer treated in 2008. TECHNIQUE: Multi-sequence multi-echo imaging of both breasts was performed with a dedicated breast coil. T1-weighted and T2-weighted images were performed before the administration of contrast. T1-weighted images were also performed after the intravenous administration of 15 cc of Clariscan contrast. COMPARISON: Bilateral mammogram dated 06/26/2023, bilateral mammogram dated 06/19/2022 and bilateral mammogram dated 06/21/2021 FINDINGS: RIGHT BREAST: Heterogeneously dense fibroglandular tissue with no significant background enhancement. No abnormal enhancing masses or areas of non-mass enhancement in the right breast. LEFT BREAST: Heterogeneously dense fibroglandular tissue with no significant background enhancement. No abnormal enhancing masses or areas of non-mass enhancement in the right breast. No enlarged or abnormal lymph nodes. No abnormality in the visualized regions of the chest or liver. MRI/Breast Bilateral W/O and W IMPRESSION: No abnormality on the breast MRI without and with contrast. Alternating yearly mammography with breast MRI with contrast may be appropriate for follow-up, given the patient''s prior history of breast cancer. CATEGORY: BIRADS Category 2: Benign. A letter regarding these results will be sent to the patient by the facility within 30 days. Electronically Signed: Ramy Meyer MD at 15:54 EDT ,
[2023-08-06 13:51] LABS: CREATININE FINGERSTICK < 1.0 mg/dL (0.55-1.02); EGFR FINGERSTICK > 60.0000 mL/min (>60)
== END | disposition home or self-care (01) ==
PROVIDERS: PCP Internal Medicine; Referring Provider Obstetrics & Gynecology; Visit Provider Obstetrics & Gynecology
DX: Z12.31 Encounter for screening mammogram for malignant neoplasm of breast (principal); Z85.3 Personal history of malignant neoplasm of breast
CPT/HCPCS: 77049; A9575; A4216; C8908

== ENCOUNTER → 2023-08-07 | Outpatient (CLI) | payer MEDICARE, SELFPAY | END | disposition home or self-care (01) | LOC: LAB 10:17 | PROVIDERS: PCP Internal Medicine; Referring Provider Obstetrics & Gynecology; Visit Provider Obstetrics & Gynecology | DX: Z85.3 Personal history of malignant neoplasm of breast (principal) | CPT/HCPCS: 36415 ==

== ENCOUNTER → 2023-08-13 | Outpatient (CLI) | payer MEDICARE, SELFPAY | END | disposition home or self-care (01) | LOC: LAB 14:00 | PROVIDERS: PCP Internal Medicine; Referring Provider Obstetrics & Gynecology; Visit Provider Obstetrics & Gynecology | DX: Z85.3 Personal history of malignant neoplasm of breast (principal); Z80.42 Family history of malignant neoplasm of prostate; Z80.3 Family history of malignant neoplasm of breast | CPT/HCPCS: 36415 ==

== ENCOUNTER → 2023-08-20 | Outpatient (CLI) | payer MEDICARE, SELFPAY ==
--- NOTE | 2023-08-20 16:14 | US_ITS ---
STUDY: RENAL ULTRASOUND - COMPLETE REASON FOR EXAM: Female, 68 years old. UTI TECHNIQUE: Ultrasound evaluation of the kidneys was performed with real-time and static hendrix-scale imaging. COMPARISON: None. FINDINGS: RIGHT KIDNEY: Normal location of the right kidney, which is normal in size. The right kidney measures 9.1 cm. There is a normal cortex of the right kidney. The renal cortex measures 1.0 cm. There is no right renal mass or cyst. There are no right renal calculi. There is no right hydronephrosis. DISTAL RIGHT URETER: There is non-visualization of the distal right ureter. There is no demonstrated right ureterovesical junction calculus. There is a visualized right ureteral jet. LEFT KIDNEY: Normal location of the left kidney, which is normal in size. The left kidney measures 10.0 cm. There is a normal cortex of the left kidney. The renal cortex measures 1.2 cm. There is no left renal mass or cyst. There are no left renal calculi. There is mild hydronephrosis of the left kidney. DISTAL LEFT URETER: There is non-visualization of the distal left ureter. There is no demonstrated left ureterovesical junction calculus. There is a visualized left ureteral jet. BLADDER: The distended urinary bladder has a volume of 34 ml. The empty urinary bladder has a volume of ml. There is a normal wall thickness of the distended urinary bladder. There is no demonstrated mass within the urinary bladder. There are no demonstrated bladder calculi. US/Kidney and Bladder IMPRESSION: Mild left hydronephrosis. Electronically Signed: Samuel Evans MD at 13:34 EDT ,
== END | disposition home or self-care (01) ==
LOC: US 16:12
PROVIDERS: PCP Internal Medicine; Referring Provider Urology; Visit Provider Urology
DX: N39.0 Urinary tract infection, site not specified (principal)
CPT/HCPCS: 76770

== ENCOUNTER → 2023-09-02 | Outpatient (CLI) | payer MEDICARE, SELFPAY ==
--- NOTE | 2023-09-02 07:47 | CT_ITS ---
STUDY: CT ABDOMEN AND PELVIS WITH AND WITHOUT CONTRAST REASON FOR EXAM: Female, 68 years old. Flank pain and fever RADIATION DOSAGE (If Supplied By Facility): CTDIvol = ( 18.83 ) mGy, DLP = ( 2651.42 ) mGycm TECHNIQUE: Transaxial images were obtained from the dome of the diaphragm to the symphysis pubis without oral contrast. IV 100mL Isovue-300 was administered. Sagittal and coronal images were reconstructed. Individualized dose optimization techniques were used for this CT. COMPARISON: Ultrasound the kidneys from 08/20/2023. FINDINGS: The visualized lung bases are unremarkable. The visualized portions of the heart are within normal limits. Normal liver. There are surgical clips in the gallbladder fossa consistent with a prior cholecystectomy. Normal spleen. Normal pancreas. Normal bilateral adrenal glands. The left calyces are mildly dilated but there is no hydroureter, perinephric or periureteral inflammatory stranding. Both ureters are of normal course and caliber. Normal visualized stomach. Nondistended fluid-filled small bowel loops noted consistent with ileus which may be due to to retained stool noted throughout the colon Normal colon. The appendix is visualized and appears normal. Appendix seen on coronal reconstructed images 62 through 72 There is diffuse atherosclerotic calcification of the abdominal aorta, without a demonstrated aneurysm. Normal inferior vena cava. Normal retroperitoneum. Normal urinary bladder. Normal abdominal wall. Normal osseous structures aside from grade 1 spondylolisthesis at L4-5.. CT/CT Abd/Pelvis W/WO Contrast IMPRESSION: Persistent nonspecific dilatation of the left renal calyces without hydroureter, perinephric or periureteral inflammatory stranding. No free intraperitoneal fluid, air, or suspicious adenopathy Small bowel ileus likely due to retained stool throughout the colon Electronically Signed: Rodolfo Campbell MD at 13:37 EDT ,
== END | disposition home or self-care (01) ==
LOC: CT 07:46
PROVIDERS: PCP Internal Medicine; Referring Provider Urology; Visit Provider Urology
DX: N13.30 Unspecified hydronephrosis (principal)
CPT/HCPCS: 74178; Q9967

== ENCOUNTER → 2024-03-01 | Outpatient (CLI) | payer MEDICARE, SELFPAY ==
--- NOTE | 2024-03-01 16:57 | US_ITS ---
EXAM: US RETROPERITONEAL LIMITED, RENAL CLINICAL INDICATION: HYDRONEOPHROSIS TECHNIQUE: Limited grayscale and color Doppler sonographic evaluation of the retroperitoneum was performed. COMPARISON: Unenhanced CT September 02, 2023. There was a mildly prominent left renal pelvic apparent cyst at the upper pole, versus focal mild infundibular dilatation, 2.6 cm x 1.7 cm, and posterior-superior right renal cyst of 7 mm. FINDINGS: RIGHT KIDNEY: Unremarkable. 9.1 cm x 5 cm x 4.2 cm. 1 cm cortical thickness. No hydronephrosis. Renal pelvis estimated to be 9 mm. No shadowing calculus. 1.1 cm x 0.9 cm x 1.2 cm simple-appearing cyst at the upper pole cortex No perinephric collection is demonstrated. LEFT KIDNEY: 10.0 cm x 4.4 cm x 5.7 cm. 1.2 cm cortical thickness. There is mild hydronephrosis versus visualization of prominent infundibulum. No shadowing calculus. No focal lesion. No perinephric collection is demonstrated. BLADDER: Mildly distended, calculated to be 34 cc, wall thickness 4.5 mm. Bilateral ureteral jets were visualized. US/Kidney and Bladder IMPRESSION: Minimal left intrarenal hydronephrosis versus small parapelvic cysts, thought to be similar to prior CT. No extrarenal collecting system dilatation. Otherwise unremarkable exam. Electronically Signed: Kalie Donato MD at 2:30 EST ,
== END | disposition home or self-care (01) ==
PROVIDERS: PCP Internal Medicine; Referring Provider Urology; Visit Provider Urology
DX: N13.30 Unspecified hydronephrosis (principal)
CPT/HCPCS: 76770

== ENCOUNTER → 2024-06-01 | Outpatient (CLI) | payer MEDICARE, SELFPAY ==
[2024-06-01 12:21] LABS: Absolute Lymphocyte Count 2.76 X10^3/uL (0.83-4.51); Absolute Neutrophil Count 2.2 X10^3/uL (2.0-7.7); Basophil# 0.03 X10^3/uL; Basophil% 0.5 % (0-1); Eosinophil# 0.17 X10^3/uL; Eosinophils% 3.1 % (0-5); Hematocrit 44.1 % (37-47); Hemoglobin 13.7 g/dL (12.0-15.0); Lymphocyte # 2.76 X10^3/ul (0.83-4.51); Mean Corp Hgb Conc 31.1 g/dL (32-36); Mean Corpuscular Hgb 28.8 pg (27.0-32.0); Mean Corpuscular Volume 92.6 fL (81-99); Mean Platelet Vol. 9.8 fl (6.2-12.0); Monocyte% 7.2 % (0-10); NRBC Flagged by Analyzer 0 % (0-5); Neutrophil # 2.15 X10^3/uL (2.7-7.7); Platelet Count 268 K/mm3 (150-450); RBC Distribution Width CV 13.9 % (11.6-14.6); RBC Distribution Width SD 47.5 fl (35.1-43.9); Red Blood Count 4.76 M/mm3 (4.2-5.4); White Blood Count 5.5 K/mm3 (4.4-11.0)
[2024-06-01 13:26] LABS: ALB/GLOB Ratio 1.2 RATIO (0.9-2.4); AST(SGOT) 21 U/L (15-37); Alanine Aminotransfer ALT/SGPT 27 U/L (13-56); Albumin, Serum 3.9 g/dL (3.2-5.0); Alkaline Phosphatase 76 U/L (45-117); Anion Gap 8 (5-15); BUN 16 mg/dL (7-18); BUN/Creat Ratio 22.8 RATIO (10-20); Calcium,Total 9.8 mg/dL (8.5-10.1); Chloride 108 mmol/L (98-107); Cholesterol 209 mg/dL (200); EST Glomerular Filtration Rate 89 mL/min (>60); Est Glom Filt Rate - Afr Amer 107 mL/min (>60); Globulin 3.3 g/dL (2.2-4.2); Glucose 90 mg/dL (74-106); High Density Lipoprotein 65 mg/dL; Protein, Total 7.2 g/dL (6.4-8.2); Sodium Level 140 mmol/L (136-145); Triglycerides 108 mg/dL; Very Low Density Lipoprotein 22 mg/dL (5-40)
== END | disposition home or self-care (01) ==
LOC: BIMLAB 09:44
PROVIDERS: PCP Internal Medicine; Referring Provider Physician Assistant; Visit Provider Physician Assistant
DX: R53.83 Other fatigue (principal); I10 Essential (primary) hypertension
CPT/HCPCS: 36415; 80053; 80061; 84443; 85025

== ENCOUNTER 2024-07-05 06:37 | Outpatient (CLI) | payer MEDICARE, SELFPAY ==
--- NOTE | 2024-07-05 06:40 | ECHOD_ITS ---
Reason For Study Reason For Study: Murmur Procedure This was a 2D Doppler, Color Flow transthoracic echocardiogram. Myocardial strain analysis was performed in this exam to aid in the assessment of cardiac function. Exam performed in department. Left Ventricle Normal size and thickness. The global longitudinal strain = -20.9 % (normal). Left ventricular systolic function is normal. The left ventricular ejection fraction is 65 %. Normal diastology for age. Right Ventricle Normal right ventricle. Atria The left and right atria are normal. Lipomatous hypertrophy of the atrial septum. Mitral Valve Trivial to mild mitral valve regurgitation. Tricuspid Valve Mild tricuspid valve insufficiency. Normal pulmonary artery pressure. Aortic Valve Trisinus/trileaflet aortic valve. Pulmonic Valve The pulmonic valve is not well visualized. Great Vessels Normal sized aortic root. Pericardium/Pleural No pericardial effusion. MMode/2D Measurements & Calculations LVIDd: 4.8 cm IVSd: 0.97 cm Ao root diam: 3.2 cm LVIDs: 2.8 cm LVPWd: 0.85 cm RVDd: 3.6 cm FS: 42.0 % LAV(MOD-bp): 45.0 ml LVAd ap4: 27.3 cm2 SV(MOD-sp4): 47.9 ml LAV(MOD-bp) Indexed: 24.4 ml/m2 LVLd ap4: 7.7 cm SI(MOD-sp4): 26.0 ml/m2 LAV(MOD-sp2): 40.6 ml EDV(MOD-sp4): 80.1 ml LAV(MOD-sp4): 50.5 ml EDV(sp4-el): 82.5 ml LVAs ap4: 15.9 cm2 LVLs ap4: 6.5 cm ESV(MOD-sp4): 32.2 ml ESV(sp4-el): 32.9 ml EF(MOD-sp4): 59.7 % EF(sp4-el): 60.1 % SV(sp4-el): 49.6 ml LA A4 area: 17.2 cm2 LA dimension(2D): 3.5 cm RA A4 area: 11.5 cm2 TAPSE: 2.3 cm Time Measurements MV dec time: 0.21 sec Doppler Measurements & Calculations MV E max quinn: 67.8 cm/sec Lat Peak E' Quinn: 12.4 cm/sec Med Peak E' Quinn: 10.9 cm/sec MV A max quinn: 80.3 cm/sec E/E' lat: 5.5 E/E' med: 6.2 MV E/A: 0.84 MV V2 max: 97.1 cm/sec MV P1/2t max quinn: 76.7 cm/sec Ao V2 max: 143.7 cm/sec MV max P.8 mmHg MV P1/2t: 77.8 msec Ao max P.3 mmHg MV V2 mean: 52.4 cm/sec Ao V2 mean: 98.5 cm/sec MV mean P.3 mmHg MV dec slope: 288.8 cm/sec2 Ao mean P.4 mmHg MV V2 VTI: 27.4 cm MVA(P1/2t): 2.8 cm2 Ao V2 VTI: 30.4 cm AV (velocity ratio): 0.68 LV V1 max: 79.6 cm/sec PA V2 max: 86.8 cm/sec TR max quinn: 130.8 cm/sec LV V1 max P.5 mmHg TR max P.8 mmHg LV V1 mean P.5 mmHg LV V1 mean: 58.0 cm/sec LV V1 VTI: 20.5 cm ECHO/Echo Complete Interpretation Summary The left ventricular ejection fraction is 65 %. Trivial to mild mitral valve regurgitation. Mild tricuspid valve insufficiency. Ordering Physician: Addy Dickey Referring Physician: Addy Dickey Performed By: Vick Valladares RCS
--- NOTE | 2024-07-05 10:42 | STRESSREP ---
Stress Test Report Date: 07/05/2024 Procedure: Pharmacologic stress nuclear imaging study Indications: Physical exhaustion with activity Consent: Per the patient Procedure: The patient underwent pharmacologic (Regadenoson 0.4mg ) evaluation with a peak heart rate of 88 beats per minute (57%predicted maximal heart rate) and a peak blood pressure of 122/70 mmHg. The baseline ECG demonstrated sinus rhythm. The peak pharmacologic ECG no ischemic changes. There were no cardiac dysrhythmias pretest, during pharmacologic infusion, or recovery. There was no complaint of chest discomfort during pharmacologic infusion or recovery. The patient was injected with 11.8 millicuries of technetium 99m Cardiolite and subsequently rest SPECT Cardiolite nuclear imaging was obtained in the horizontal long, vertical long, and short axis views. The patient underwent pharmacologic (Regadenoson) evaluation. The patient was injected with 34.6 millicuries of technetium 99m Cardiolite and subsequently stress SPECT Cardiolite nuclear imaging was obtained in the horizontal long, vertical long, and short axis views. A gated Cardiolite study at peak stress was obtained. The examination was stopped secondary to completion of protocol. Rest and stress SPECT Cardiolite nuclear imaging status post realignment, normalization, and attenuation correction demonstrate no fixed or reversible perfusion defects. There is end systolic thickening and brightening. The gated Cardiolite study demonstrates myocardial thickening and inward wall motion. The reported LVEF is 68%. Impression: 1. Pharmacologic (Regadenoson) evaluation 2. Peak pharmacologic ECG with no ischemic changes. 3. There were no cardiac dysrhythmias pretest, during pharmacologic infusion, or recovery. 5. Rest and stress SPECT Cardiolite nuclear imaging demonstrate relative uniform tracer uptake and myocardial perfusion appearing within normal limits. 6. The gated Cardiolite study reports an LVEF of 68%. This note was generated with [employer] software. It may contain incorrect words, spelling, and punctuation that were not noted in checking the note before signing.
== END 2024-07-05 23:59 | disposition home or self-care (01) ==
LOC: CVS 06:39
PROVIDERS: PCP Internal Medicine; Referring Provider Physician Assistant; Visit Provider Physician Assistant
DX: R01.1 Cardiac murmur, unspecified (principal); R53.83 Other fatigue; I34.0 Nonrheumatic mitral (valve) insufficiency; I36.1 Nonrheumatic tricuspid (valve) insufficiency; I10 Essential (primary) hypertension; Z79.899 Other long term (current) drug therapy
CPT/HCPCS: 78452; 93017; 93306; A9500; A4216; J2785

== ENCOUNTER 2024-07-07 10:19 | Emergency (ER) | payer MEDICARE, SELFPAY ==
[2024-07-07 10:19] VITALS: BP 160/91; PULSE 79; RESP 14; TEMP 36.1; O2SAT 98; BMI 29.9
--- NOTE | 2024-07-07 10:39 | CT_ITS ---
PROCEDURE: CTA HEAD AND NECK W/ CONTRAST 07/07/2024 REASON FOR EXAM: CONFUSION HEADACHE TECHNIQUE: CTA imaging of the head and neck from the aortic arch to the skull vertex with intravenous contrast. Coronal and Sagittal reconstruction series were provided. 3D, 3D post processing, 3D reconstructions, Maximum intensity projection (MIPs) Volume rendering and Shaded surface rendering was provided. One or more dose reduction techniques were used (e.g., Automated exposure control, adjustment of the mA and/or kV according to patient size, use of iterative reconstruction technique). COMPARISON: None FINDINGS: NONCONTRAST CT HEAD FINDINGS: No acute intracranial hemorrhage. No acute loss of gastelum-white differentiation.The ventricles and sulci are normal in appearance. The osseous structures are unremarkable.No soft tissue abnormality identified. The paranasal sinuses and mastoid air cells are clear. CTA HEAD FINDINGS: Internal carotid arteries: No acute thrombus or dissection. Vertebrobasilar arteries: No acute thrombus or dissection. Intracranial arteries: No acute thrombus, dissection, aneurysm or vascular malformation. Venous sinuses: Unremarkable. CTA NECK FINDINGS: Aorta and proximal great vessels: No acute thrombus or dissection. Common carotid arteries: No acute thrombosis or dissection. Internal carotid arteries: No acute thrombosis or dissection. Vertebral arteries: No acute thrombosis or dissection. Bones: Unremarkable. Soft tissues: Unremarkable. CT/CTA Head AND Neck W/ Contrast IMPRESSION: 1. No acute vascular abnormality of the head and neck. 2. No acute intracranial abnormality. Reading Location: [facility]
--- NOTE | 2024-07-07 10:45 | EX.ED.DYSGE1 ---
HPI History of Present Illness Chief Complaint: Confusion Informant: patient and friend Narrative Narrative: 69-year-old female history of hypertension presenting to the emergency room with the chief complaint of confusion. She states that she has been confused for around 1 hour. Symptoms started at work. When I ask her and her coworkers for examples of confusion we keep using the word confused without really examples of it. 1 week keep working through it is more of a forgetfulness. She forgot that her mom dilated. She forgot that amlodipine is used for hypertension. She knows the year the day of the week. She notes that she did this morning. She states that she forgot that she was talking to people at work. She notes a slight headache. She states that she has not been ill recently but notes that over the weekend she developed a cough and had a coughing fit this morning at work. No reported fevers vomiting diarrhea rashes neck pain back pain. She denies chest pain or abdominal pain. No change in vision. She states that she is able to ambulate down the hallway without difficulty. She states that she feels maybe she was a little lightheaded. [facility] Medical History Hypertension JUAN III (cervical intraepithelial neoplasia grade III) with severe dysplasia Breast cancer Home Medications ?Medication ?Instructions ?Recorded ?Last Taken ?Type amlodipine 5 mg tablet 5 mg PO DAILY #90 tabs 06/10/23 Unknown Rx calcium carbonate 500 mg PO DAILY 07/10/23 Unknown History cholecalciferol (vitamin D3) 50 50 mcg PO DAILY 07/10/23 Unknown History mcg (2,000 unit) capsule cranberry fruit 400 mg capsule 400 mg PO DAILY 07/10/23 Unknown History etodolac 500 mg tablet 500 mg PO BID PRN pain #60 tabs 07/04/24 Unknown Rx Allergy/AdvReac Type Severity Reaction Status Date / Time Sulfa (Sulfonamide Allergy Rash Verified 07/07/24 10:27 Antibiotics) Family History Sister Breast cancer Father Cancer melanoma Mother Heart disease Surgical History History of cholecystectomy H/O lumpectomy H/O: hysterectomy Social History number of children: 2 current occupational status: employed Smoking Status: Never smoker alcohol intake: never substance use type: does not use what type of physical activity do you participate in: none seatbelt use: always do you feel safe at home: Yes ROS ROS ED Constitutional Constitutional ED: Denies chills, fever(s) or weight loss Eyes Eyes: Denies change in vision or diplopia ENT ENT ED: Denies ear pain, rhinorrhea or sore throat Cardiovascular Cardiovascular: Denies chest pain, orthopnea, palpitations or racing heartbeat Respiratory/Chest Respiratory/Chest: Reports cough; Denies dyspnea or orthopnea Gastrointestinal Gastrointestinal: Denies abdominal pain, diarrhea, nausea or vomiting Genitourinary Genitourinary ED: Denies dysuria, hematuria or urinary frequency Musculoskeletal Musculoskeletal: Denies arthralgias, back pain, myalgias or neck pain Integumentary Denies abscess or rash Neurologic Neurologic: Reports headache(s) and other Details: Forgetfulness (confusion) ; Denies paresthesias or weakness Psychiatric Psychiatric: Denies anxiety, depression, suicidal ideation or suicidal thoughts Endocrine Endocrinology: Denies polydipsia, polyphagia or polyuria Allergic/Immunologic Allergic/Immunologic ED: Denies mouth swelling, tongue swelling or urticaria EXAM Physical Exam Const Vital Signs: 07/07/24 10:19 07/07/24 12:19 07/07/24 14:00 Temperature 97 F L Temperature Source Temporal Pulse Rate 79 87 Respiratory Rate 14 Blood Pressure 160/91 H 126/78 H 134/78 H Blood Pressure Mean 114 94 96 Pulse Ox 98 98 Oxygen Delivery Method Room Air 07/07/24 15:17 Temperature 98 F Temperature Source Pulse Rate 87 Respiratory Rate 18 Blood Pressure 134/78 H Blood Pressure Mean 96 Pulse Ox 98 Oxygen Delivery Method Positive well nourished and well developed General Appearance ED: well developed and NAD HEENT Reports normocephalic, head/scalp atraumatic and moist mucous membranes Eyes PERRL and EOMs intact bilaterally Neck no lymphadenopathy, supple and no JVD Resp normal respiratory effort and clear to auscultation bilaterally Cardio regular rate, regular rhythm and no murmurs GI normal to inspection, nondistended, normoactive bowel sounds and non-tender Palpation: soft Back/Spine no CVA tenderness and normal ROM Extremity normal to inspection General Extremety ED: Negative for edema General Extremity: Negative for edema Neuro oriented x3 and CN's II-XII intact bilaterally Sensorium / Orientation: alert Motor Exam: strength 5/5 throughout Psych mental status grossly normal Mood & Affect: Negative for depressed or tearful Skin no rashes or lesions noted and no wounds MDM MDM MDM Narrative Medical decision making narrative: Differential diagnosis includes but not limited to stroke aneurysm intracranial hemorrhage malignancy intoxication/toxidrome electrolyte abnormalities dehydration viral syndrome Patient's blood work essentially normal. Toxicology was normal. Urinalysis with no overt infection. There is noted to be 2+ bacteria positive nitrates and was sent for culture as she is otherwise asymptomatic. CTA of the head and neck was obtained and is negative. Patient appears to be in a sinus rhythm on the monitor. She just had a stress test that is being read as negative. Patient has been having normal conversation with her . It seems that the forgetfulness is selective. I spoke with primary care to close the loop and if she is still having symptomology we talked about doing an outpatient MRI. At this point though her NIH is 0. This does not appear readily stroke and I do not feel we need an emergent MRI. Will swab her for COVID influenza given the cough and the recent travel. Patient does note to nursing that she is under a good deal of stress and wonders if that can possibly do it which I would agree that that can cause this type of symptoms. History & Record Review Discussion w/independent historian: Patient and Family Additional record(s) reviewed:: Prior outpatient record Lab Data Attestation: I reviewed the patient's lab results. Labs: Laboratory Results - last 24 hr 07/07/24 07/07/24 07/07/24 10:55 10:59 12:49 WBC 5.9 RBC 4.73 Hgb 13.9 Hct 42.8 MCV 90.5 MCH 29.4 MCHC 32.5 RDW Std Deviation 46.3 H RDW Coeff of Emma 13.8 Plt Count 238 MPV 9.2 Immature Gran % (Auto) 0.200 Neut % (Auto) 40.6 L Lymph % (Auto) 40.0 [place] % (Auto) 13.7 H Eos % (Auto) 5.0 Baso % (Auto) 0.5 Absolute Neuts (auto) 2.4 Absolute Lymphs (auto) 2.34 Nucleated RBC % 0 Sodium 139 Potassium 4.1 Chloride 104 Carbon Dioxide 23.9 Anion Gap 12 BUN 17 Creatinine 0.75 Estim Creat Clear Calc 69.53 Est GFR (MDRD) Non-Af 87 BUN/Creatinine Ratio 22.2 H Glucose 94 Calcium 9.8 Total Bilirubin 0.77 Direct Bilirubin 0.31 H AST 26 ALT 22 Alkaline Phosphatase 94 Total Protein 7.2 Albumin 4.6 Globulin 2.6 Urine Color Yellow Urine Clarity Clear Urine pH 5.0 Ur Specific [place] 1.025 Urine Protein 15 H Urine Glucose (UA) Normal Urine Ketones Negative Urine Occult Blood 150 H Urine Nitrite Positive H Urine Bilirubin 6 H Urine Urobilinogen Normal Ur Leukocyte Esterase 25 H Urine RBC 0 SEEN Urine WBC 0 SEEN Ur Squamous Epith Cells 0-5 SEEN Urine Bacteria 2+ Urine Mucus 0 SEEN Urine Opiates Screen NEGATIVE U Buprenorphine Qual NEGATIVE Ur Oxycodone Screen NEGATIVE Urine Methadone Screen NEGATIVE Urine Fentanyl Screen NEGATIVE Ur Barbiturates Screen NEGATIVE Ur Phencyclidine Scrn NEGATIVE Ur Amphetamines Screen NEGATIVE U Benzodiazepines Scrn NEGATIVE Urine Cocaine Screen NEGATIVE U Cannabinoids Screen NEGATIVE Ethyl Alcohol 07/07/24 13:25 WBC RBC Hgb Hct MCV MCH MCHC RDW Std Deviation RDW Coeff of Emma Plt Count MPV Immature Gran % (Auto) Neut % (Auto) Lymph % (Auto) [place] % (Auto) Eos % (Auto) Baso % (Auto) Absolute Neuts (auto) Absolute Lymphs (auto) Nucleated RBC % Sodium Potassium Chloride Carbon Dioxide Anion Gap BUN Creatinine Estim Creat Clear Calc Est GFR (MDRD) Non-Af BUN/Creatinine Ratio Glucose Calcium Total Bilirubin Direct Bilirubin AST ALT Alkaline Phosphatase Total Protein Albumin Globulin Urine Color Urine Clarity Urine pH Ur Specific [place] Urine Protein Urine Glucose (UA) Urine Ketones Urine Occult Blood Urine Nitrite Urine Bilirubin Urine Urobilinogen Ur Leukocyte Esterase Urine RBC Urine WBC Ur Squamous Epith Cells Urine Bacteria Urine Mucus Urine Opiates Screen U Buprenorphine Qual Ur Oxycodone Screen Urine Methadone Screen Urine Fentanyl Screen Ur Barbiturates Screen Ur Phencyclidine Scrn Ur Amphetamines Screen U Benzodiazepines Scrn Urine Cocaine Screen U Cannabinoids Screen Ethyl Alcohol < 10.1 Radiography Diagnostic Testing: Clinical Impression(s) from Imaging Studies Head/Neck CTA 07/07/24 10:39 IMPRESSION: 1. No acute vascular abnormality of the head and neck. 2. No acute intracranial abnormality. Reading Location: [facility] Management Discussion w/another healthcare provider: PCP (Conrad ([facility] @[facility])) Discharge Plan Triage Chief Complaint: Confusion ED Provider: Pepe Alfonso Dx/Rx/DC Orders Clinical Impression: Cough, Forgetfulness Prescriptions: No Action calcium carbonate 500 mg calcium (1,250 mg) tablet 500 mg PO DAILY cholecalciferol (vitamin D3) 50 mcg (2,000 unit) capsule 50 mcg PO DAILY cranberry fruit 400 mg capsule 400 mg PO DAILY Rx Instructions: administer with a meal etodolac 500 mg tablet 500 mg PO BID PRN (Reason: pain) Qty: 60 1RF Rx Instructions: Take regularly next 2 weeks then as needed. Do not take in conjunction with other NSAID. Tylenol is okay. amlodipine 5 mg tablet 5 mg PO DAILY Qty: 90 3RF Primary Care Provider: Moi Clemens Referrals: Moi Clemens MD [Primary Care Provider] - (call to arrange follow up) Print Language: Palauan Disposition Disposition: Home, Self Care NIHSS NIHSS 1a. Level of Consciousness: Alert; keenly responsive 1b. LOC Questions: Answers BOTH questions correctly. 1c. LOC Commands: Performs both tasks correctly. 2. Best Gaze: Normal 3. Visual: No visual loss 4. Facial Palsy: Normal symmetrical movements 5a. Left Arm: No drift; arm holds 90 (or 45) degrees for full 10 seconds 5b. Right Arm: No drift; arm holds 90 (or 45) degrees for full 10 seconds 6a. Left Leg: No drift; leg holds 30-degree position for full 5 seconds 6b. Right Leg: No drift; leg holds 30-degree position for full 5 seconds 7. Limb Ataxia: Absent 8. Sensory: Normal; no sensory loss 9. Best Language: No aphasia; normal 10. Dysarthria: Normal 11. Extinction and Inattention: No abnormality Total: 0
[2024-07-07 11:01] LABS: Mucous, Urine 0 SEEN /hpf (<or=2+); White Blood Cells 0 SEEN /hpf (0-5)
[2024-07-07 11:03] LABS: Color, Urine Yellow (Yellow); Glucose, Dipstick Normal (Normal); Ketone-Dipstick Negative (Negative); Leukocyte Esterase-Dipstick 25 /ul (Negative); Nitrite-Dipstick Positive (Negative); Occult Blood-Urine 150 /ul (Negative); Protein-Dipstick 15 mg/dl (Negative); Specific Gravity, Urine 1.025 (1.002-1.030); Urine Clarity Clear (Clear); Urine Urobilinogen Normal (Normal)
[2024-07-07 11:04] LABS: Urine Bilirubin Dipstick 6 mg/dL (Negative)
[2024-07-07 11:08] LABS: Absolute Lymphocyte Count 2.34 X10^3/uL (0.83-4.51); Absolute Neutrophil Count 2.4 X10^3/uL (2.0-7.7); Basophil# 0.03 X10^3/uL; Basophil% 0.5 % (0-1); Eosinophil# 0.29 X10^3/uL; Hematocrit 42.8 % (37-47); Hemoglobin 13.9 g/dL (12.0-15.0); Lymphocyte # 2.34 X10^3/ul (0.83-4.51); Mean Corp Hgb Conc 32.5 g/dL (32-36); Mean Corpuscular Hgb 29.4 pg (27.0-32.0); Mean Corpuscular Volume 90.5 fL (81-99); Mean Platelet Vol. 9.2 fl (6.2-12.0); Monocyte% 13.7 % (0-10); NRBC Flagged by Analyzer 0 % (0-5); Neutrophil # 2.38 X10^3/uL (2.7-7.7); Neutrophil % 40.6 % (47-70); Platelet Count 238 K/mm3 (150-450); RBC Distribution Width CV 13.8 % (11.6-14.6); RBC Distribution Width SD 46.3 fl (35.1-43.9); Red Blood Count 4.73 M/mm3 (4.2-5.4); White Blood Count 5.9 K/mm3 (4.4-11.0)
[2024-07-07 11:09] LABS: Bacteria 2+ /hpf (None Seen); Red Blood Cells-Urine 0 SEEN /hpf (0-5); Squamous Epithelial Cells - UA 0-5 SEEN /hpf (5-10)
[2024-07-07 11:47] LABS: AST(SGOT) 26 U/L (<=31); Alanine Aminotransfer ALT/SGPT 22 U/L (<=34); Albumin, Serum 4.6 g/dL (3.4-4.8); Alkaline Phosphatase 94 U/L (35-104); Anion Gap 12 (5-15); BUN 17 mg/dL (4-19); BUN/Creat Ratio 22.2 RATIO (10-20); Bilirubin, Direct 0.31 mg/dL (0.00-0.30); Calcium,Total 9.8 mg/dL (7.6-11.0); Carbon Dioxide 23.9 mmol/L (21.0-32.0); Chloride 104 mmol/L (98-108); Creatinine, Serum 0.75 mg/dL (0.70-1.20); EST Glomerular Filtration Rate 87 (>60); Estimated Creatinine Clearance 69.53 ml/min (50-250); Globulin 2.6 g/dL (2.2-4.2); Glucose 94 mg/dL (70-99); Potassium 4.1 mmol/L (3.3-5.1); Protein, Total 7.2 g/dL (5.9-8.4); Sodium Level 139 mmol/L (133-145); Total Bilirubin 0.77 mg/dL (0.00-1.30)
[2024-07-07 12:19] VITALS: BP 126/78
[2024-07-07 13:08] LABS: Amphetamine Urine NEGATIVE (<1000 ng/mL); Barbiturate Urine NEGATIVE (< 200 ng/mL); Benzodiazepine Urine NEGATIVE (< 200 ng/mL); Buprenorphine Urine NEGATIVE (< 200 ng/mL); Cocaine Urine NEGATIVE (< 300 ng/mL); Fentanyl, Urine NEGATIVE; Methadone Urine NEGATIVE (< 300 ng/mL); Opiates Urine NEGATIVE (< 300 ng/mL); Oxycodone, Urine NEGATIVE (< 100 ng/mL); PCP Urine NEGATIVE (< 25 ng/mL); THC Urine NEGATIVE (< 50 ng/mL)
[2024-07-07 14:00] VITALS: BP 134/78; PULSE 87; O2SAT 98
[2024-07-07 14:36] LABS: Alcohol, Blood (Medical)-Serum < 10.1 mg/dL (<=10.0)
[2024-07-07 15:17] VITALS: BP 134/78; PULSE 87; RESP 18; TEMP 36.6; O2SAT 98
== END 2024-07-07 15:41 | disposition home or self-care (01) ==
PROVIDERS: Emergency Provider Emergency Medicine; PCP Internal Medicine; Visit Provider Emergency Medicine
DX: R41.0 Disorientation, unspecified (principal); I10 Essential (primary) hypertension; R05.9 Cough, unspecified; Z90.710 Acquired absence of both cervix and uterus; Z85.3 Personal history of malignant neoplasm of breast; Z90.49 Acquired absence of other specified parts of digestive tract; Z79.899 Other long term (current) drug therapy
CPT/HCPCS: 70496; 70498; 80048; 80076; 80307; 81001; 82077; 85025; 87086; 87088; 87631; 99284; Q9967; A4216

== ENCOUNTER → 2024-07-08 | Outpatient (CLI) | payer MEDICARE, SELFPAY ==
--- NOTE | 2024-07-08 10:30 | BI_ITS ---
EXAM: SCRN MAMM (CAD)W/JESSIKA BILAT 07/08/2024 CLINICAL HISTORY: F, Age 69 y/o , SCREENING FOR BREAST CANCER TECHNIQUE: Bilateral screening digital breast tomosynthesis with 2D and 3D images. Computer aided detection. COMPARISON: Prior exam(s) dated 06/19/2022. FINDINGS: TISSUE DENSITY: The breast tissue is heterogenously dense, which may obscure small masses. The mammogram demonstrates that the patient has dense breasts. Supplemental screening with whole breast ultrasound or MRI may be considered for further evaluation. Bilateral Breast Mammographic Findings: No significant masses, calcifications or other abnormalities are identified. BI/SCRN MAMM (CAD)W/JESSIKA BILAT IMPRESSION: Right Breast: BIRADS 1 NEGATIVE. Left Breast: BIRADS 1 NEGATIVE. OVERALL FINAL ASSESSMENT: BIRADS 1 NEGATIVE. RECOMMENDATION: Routine annual follow-up in 1 Year A letter with findings and recommendations will be mailed to the patient. Reading Location: [id number]
== END | disposition home or self-care (01) ==
LOC: OPBI 10:24
PROVIDERS: PCP Internal Medicine; Referring Provider Obstetrics & Gynecology; Visit Provider Obstetrics & Gynecology
DX: Z12.31 Encounter for screening mammogram for malignant neoplasm of breast (principal)
CPT/HCPCS: 77063; 77067

== ENCOUNTER → 2024-08-11 | Outpatient (CLI) | payer MEDICARE, SELFPAY ==
--- NOTE | 2024-08-11 07:29 | MRI_ITS ---
PROCEDURE: BRAIN W/WO CONTRAST 08/11/2024 REASON FOR EXAM: TIA TECHNIQUE: Brain MRI without and with intravenous contrast with additional dedicated imaging of the IACs. Multiplanar and multisequence images were obtained. CONTRAST: 15 cc IV Clariscan. COMPARISON: CTA head and neck 07/07/2024 FINDINGS: TECHNIQUE: Multiplanar, multi-sequence MRI of brain was performed without and with IV contrast. FINDINGS: BRAIN/PARENCHYMA: No evidence of acute infarction or acute intracranial hemorrhage. No abnormal post-contrast enhancement. EXTRA-AXIAL SPACES: No abnormal extra-axial fluid collections. Patent basal cisterns and foramen magnum. MIDLINE SHIFT: None. VENTRICLES: No hydrocephalus. SCALP SOFT TISSUES & CALVARIUM: No significant abnormality. VISUALIZED SINUSES & MASTOIDS: No air-fluid levels in the paranasal sinuses. The mastoid air cells are clear. ARTERIAL FLOW VOIDS: Preserved major arterial flow voids indicating gross patency. MRI/Brain W/WO Contrast IMPRESSION: No acute intracranial abnormality. No suspicious parenchymal or leptomeningeal enhancement. Reading [facility]
== END | disposition home or self-care (01) ==
LOC: MRI 07:18
PROVIDERS: PCP Internal Medicine; Referring Provider Physician Assistant; Visit Provider Physician Assistant
DX: G45.9 Transient cerebral ischemic attack, unspecified (principal); R68.89 Other general symptoms and signs
CPT/HCPCS: 70553; A9575

== ENCOUNTER → 2024-11-24 | Outpatient (CLI) | payer MEDICARE, SELFPAY | END | disposition home or self-care (01) | LOC: LABSPEC 16:18 | PROVIDERS: PCP Internal Medicine; Visit Provider Advanced Practice Midwife | DX: N89.8 Other specified noninflammatory disorders of vagina (principal) | CPT/HCPCS: 87070; 87205 ==

== ENCOUNTER → 2025-01-18 | Outpatient (CLI) | payer MEDICARE, SELFPAY ==
[2025-01-18 15:17] LABS: Anion Gap 13 (5-15); BUN 20 mg/dL (4-19); BUN/Creat Ratio 27.9 RATIO (10-20); Calcium,Total 9.9 mg/dL (7.6-11.0); Carbon Dioxide 21.3 mmol/L (21.0-32.0); Chloride 105 mmol/L (98-108); Glucose 93 mg/dL (70-99); Potassium 4.1 mmol/L (3.3-5.1)
== END | disposition home or self-care (01) ==
LOC: MTLAB 13:14
PROVIDERS: PCP Internal Medicine; Referring Provider Internal Medicine; Visit Provider Internal Medicine
DX: F41.9 Anxiety disorder, unspecified (principal); I10 Essential (primary) hypertension
CPT/HCPCS: 36415; 80048